=== PATIENT | female | born 1950 | race Caucasian/White ===

== ENCOUNTER 2023-02-02 10:58 | Emergency (ER) | payer MEDICARE ==
[~2023-02-02] VITALS: Ht 157.5 cm; Wt 73.9 kg
[2023-02-02] MEDS ORDERED: Percocet 5-3251 EACH PO (13:50)
[2023-02-02 14:03] VITALS: BP 120/68
== END 2023-02-02 14:05 | disposition home or self-care (01) ==
LOC: ER 10:58
DX: S86.912A Strain of unspecified muscle(s) and tendon(s) at lower leg level, left leg, initial encounter (principal); M54.2 Cervicalgia; X58.XXXA Exposure to other specified factors, initial encounter
CPT/HCPCS: 93971; 99283-25; A9270

== ENCOUNTER 2024-06-20 18:50 | Emergency (ER) | payer MEDICARE ==
[~2024-06-20] VITALS: Ht 165.1 cm; Wt 79.4 kg
[~2024-06-20 18:50] MED LIST: Percocet 5-3251 EACH PO
[2024-06-20 18:58] VITALS: BP 118/56
[2024-06-20 19:16] LABS: BASOPHILS ABSOLUTE AUTO 0.02 K/mm3 (0.00-0.23); BASOPHILS PERCENT AUTO 0 % (0-2); EOSINOPHILS ABSOLUTE AUTO 0.08 K/mm3 (0.00-0.68); EOSINOPHILS PERCENT AUTO 2 % (0-6); Hematocrit 33.8 % (33.0-51.0); Hemoglobin 11.3 g/dL (11.5-16.0); IMMATURE GRAN ABSOLUTE AUTO 0.01 K/mm3 (0.00-0.10); IMMATURE GRAN PERCENT AUTO 0 % (0-1); LYMPHOCYTES ABSOLUTE AUTO 0.98 K/mm3 (0.84-5.20); LYMPHOCYTES PERCENT AUTO 21 % (21-46); MONOCYTES ABSOLUTE AUTO 0.36 K/mm3 (0.16-1.47); MONOCYTES PERCENT AUTO 8 % (4-13); Mean Corpuscular HGB 32.8 pg (26.0-34.0); Mean Corpuscular HGB Conc 33.4 g/dL (31.5-36.5); Mean Corpuscular Volume 98 fL (80-100); Mean Platelet Volume 9.3 fL (9.1-12.4); NEUTROPHILS ABSOLUTE AUTO 3.15 K/mm3 (1.96-9.15); NEUTROPHILS PERCENT AUTO 69 % (41-73); Platelet Count 291 K/mm3 (150-400); RDW Coefficient Variation 12.5 % (11.7-14.2); RDW Standard Deviation 44.5 fL (35.1-46.3); Red Blood Cell Count 3.45 M/mm3 (3.80-5.20)
[2024-06-20 19:40] LABS: Albumin, Blood 3.5 g/dL (3.4-5.0); Albumin/Globulin Ratio 1.2 (0.8-1.8); Bilirubin, Total 0.2 mg/dL (0.1-1.0); Bun/Creatinine Ratio 19.8 (12.0-20.0); Calcium, Blood 8.3 mg/dL (8.5-10.1); Creatinine, Blood 0.61 mg/dL (0.40-1.00); Globulin, Blood 2.9 g/dL (2.2-4.0); Potassium, Blood 3.8 mmol/L (3.5-5.5); Total Protein, Blood 6.4 g/dL (6.4-8.2)
== END 2024-06-20 21:44 | disposition left against medical advice (07) ==
LOC: ER 18:50
PROVIDERS: Student in an Organized Health Care Education/Training Program
DX: F41.9 Anxiety disorder, unspecified (principal)
CPT/HCPCS: 80053; 85025; 99282